=== PATIENT | female | born 1970 | race Caucasian/White ===

== ENCOUNTER 2020-04-24 08:28 | Outpatient (REF) | payer OTHER, SELFPAY ==
[2020-04-24 08:48] LABS: COVID-19 Test Negative (Negative)
== END 2020-04-24 08:29 | disposition home or self-care (01) ==
LOC: HO.LAB 08:28
PROVIDERS: PCP Hospitalist; Visit Provider Internal Medicine
DX: Z20.828 Contact with and (suspected) exposure to other viral communicable diseases (principal)
CPT/HCPCS: 87635